=== PATIENT | male | born 2000 | race Caucasian/White ===

== ENCOUNTER 2020-06-04 21:38 | Emergency (ER) | payer OTHER, SELFPAY ==
[2020-06-04] MEDS ORDERED: Acetaminophen 500 MG TAB ONE (22:15)
[2020-06-04] MEDS ORDERED: Ibuprofen 200 MG TAB ONE (22:15)
[2020-06-04] MEDS ORDERED: Ondansetron ODT 4 MG TAB ONE (22:15)
== END 2020-06-04 23:02 | disposition home or self-care (01) ==
LOC: ERS 21:38
DX: S06.0X0A Concussion without loss of consciousness, initial encounter (principal); X58.XXXA Exposure to other specified factors, initial encounter
CPT/HCPCS: 99283; Q0162

== ENCOUNTER 2023-06-09 12:27 | Emergency (ER) | payer OTHER, SELFPAY ==
[2023-06-09] MEDS ORDERED: Cyclobenzaprine 10 MG TAB ONE (13:05)
[2023-06-09] MEDS ORDERED: Ketorolac Tromethamine 30 MG/ML VIAL ONE (13:05)
== END 2023-06-09 14:15 | disposition home or self-care (01) ==
LOC: ERS 12:27
DX: S09.90XA Unspecified injury of head, initial encounter (principal); M25.561 Pain in right knee; V89.2XXA Person injured in unspecified motor-vehicle accident, traffic, initial encounter
CPT/HCPCS: 70450; 72125; 96372; J1885